=== PATIENT | female | born 1980 | race Caucasian/White ===

== ENCOUNTER 2021-06-11 16:13 | Emergency (ER) | payer SELFPAY ==
--- NOTE | 2021-06-11 16:30 | NUR ---
CALLED TO TRIAGE,NO ANSWER
--- NOTE | 2021-06-11 16:35 | NUR ---
called for triage not in the waiting room.
--- NOTE | 2021-06-11 16:40 | NUR ---
called for triage not in the waiting room.
== END 2021-06-11 17:05 | disposition left against medical advice (07) ==
LOC: ER 16:20
DX: Z53.21 Procedure and treatment not carried out due to patient leaving prior to being seen by health care provider (principal)